=== PATIENT | female | born 1970 | race Caucasian/White ===

== ENCOUNTER 2016-08-25 13:18 | Emergency (ER) | payer MEDICAID ==
[2015-03-30 09:02] VITALS: BMI 45.5
[~2016-08-25 13:18] MED LIST: ASPIRIN81 MG PO; ELAVIL25 MG PO; HEMOCYTE PLUS C1 CAP PO; HYDROCODONE-APA1 TAB PO; ISOSORBIDE MONO30 M1 PO; K-DUR20 MEQ PO; PROAIR HFA8.5 GM INH; RANEXA500 MG PO; SYNTHROID150 MCG PO; TOPROL XL100 MG PO; ZESTORETIC 20/21 TAB PO
== END 2016-08-25 17:59 | disposition home or self-care (01) ==
LOC: D.ER 13:18
DX: H66.90 Otitis media, unspecified, unspecified ear (principal); J02.9 Acute pharyngitis, unspecified; J45.909 Unspecified asthma, uncomplicated; M54.5 Low back pain; I25.10 Atherosclerotic heart disease of native coronary artery without angina pectoris; K21.9 Gastro-esophageal reflux disease without esophagitis; I10 Essential (primary) hypertension; E05.90 Thyrotoxicosis, unspecified without thyrotoxic crisis or storm

== ENCOUNTER 2016-10-19 17:22 | Emergency (ER) | payer MEDICAID ==
[2015-03-30 09:02] VITALS: BMI 45.5
== END 2016-10-19 21:27 | disposition home or self-care (01) ==
LOC: D.ER 17:22
DX: J06.9 Acute upper respiratory infection, unspecified (principal); J45.909 Unspecified asthma, uncomplicated; I25.10 Atherosclerotic heart disease of native coronary artery without angina pectoris; K21.9 Gastro-esophageal reflux disease without esophagitis; I10 Essential (primary) hypertension; E05.90 Thyrotoxicosis, unspecified without thyrotoxic crisis or storm

== ENCOUNTER 2016-10-22 18:04 | Emergency (ER) | payer MEDICAID ==
[2015-03-30 09:02] VITALS: BMI 45.5
[2016-10-22 18:35] LABS: BASOPHILS 0.3 % (0.0-2.0); EOSINOPHILS 2.3 % (0-7); HEMATOCRIT 39.9 % (36.0-48.0); HEMOGLOBIN 13.5 g/dL (12-16); IMMATURE GRANULOCYTES 0.5 % (0-5); LYMPHOCYTES 36.1 % (15-50); MCHC 33.8 g/dL (31.0-37.0); MCV 85.6 fL (80.0-100.0); MEAN PLATELET VOLUME 9.6 fL (7.4-10.4); MONOCYTES 5.7 % (2-11); NEUTROPHILS 55.1 % (40-80); PLATELET COUNT 354 10x3/uL (130-400); RBC 4.66 10x6/uL (4.00-5.40); RDW 13.3 % (11.5-14.5); WBC 12.7 10x3/uL (4.8-10.8)
== END 2016-10-22 20:50 | disposition left against medical advice (07) ==
LOC: D.ER 18:04
PROVIDERS: Emergency Medicine
DX: R10.84 Generalized abdominal pain (principal)

== ENCOUNTER 2017-03-24 16:01 | Observation (INO) | payer MEDICAID ==
[~2017-03-24] VITALS: Ht 157.5 cm; Wt 100.0 kg
--- NOTE | ~2017-03-24 | CN ---
PATIENT NAME:DOUGLAS DENNIS MEDICAL RECORD: [id number] : 70 LOCATION:D. D.2131 ADMIT DATE: 03/24/17 ACCOUNT: [id number] CONSULTING PHYSICIAN: TITA CANNON MD REFERRING PHYSICIAN: RICHA TOURE MD DATE OF CONSULTATION: 03/25/2017 DIAGNOSES: 1. Unstable angina. 2. Coronary artery disease. 3. Status post coronary artery bypass graft surgery. 4. Hypertension. HISTORY OF PRESENT ILLNESS: Mrs. Dennis presents with unstable anginal symptomatology, it has been going on for the past 3 days. It is just like that of her previous angina prior to her bypass surgery. Her bypass surgery was in 2014 with HURT to the LAD and vein graft to the LAD diagonal. Her troponin is normal. She continues to have the chest pain this morning. EKG is with nonspecific ST-T abnormalities. PHYSICAL EXAMINATION: GENERAL APPEARANCE: Well-nourished, well-developed, appears stated age. Level of distress, comfortable. PSYCHIATRIC: Mental status, alert, normal affect. Orientation, oriented to time, place and person. EYES: Lids and conjunctiva, noninjected. No discharge, no pallor. ENT: Lips, teeth, gums, normal dentition. Oropharynx, no cyanosis, no pallor. NECK: Carotid arteries, bilateral normal upstroke, no bruits, no thrills. JUGULAR VEINS: No jugular venous pressure or distention. CERVICAL LYMPH NODES: Nontender, nonenlarged. THYROID: Not enlarged. Nontender. No nodules. LUNGS: Respiratory effort, unlabored. CHEST: Normal curvature. No thoracic deformity. No chest wall tenderness. Percussion, resonant. Auscultation, clear. No wheezes, no rales, no rhonchi. CARDIOVASCULAR: Precordial exam, nondisplaced. No heaves or pericardial thrills. Rate and rhythm, regular. Heart sounds, normal S1, normal S2. No S3, no gallop, no rub. Systolic murmur, not heard. Diastolic murmur, not heard. EXTREMITIES: No cyanosis, no edema. Peripheral pulses, full and equal in all extremities, except as noted. No bruits appreciated. ABDOMEN: Soft, nondistended. Normal aorta. No bruit. Nontender. No masses. Liver, nontender, no hepatomegaly. Spleen, nontender, no splenomegaly. MUSCULOSKELETAL: No joint tenderness. No joint swelling. No erythema. NEUROLOGICAL: Normal gait, normal strength, normal tone. SKIN: Warm and dry. OVERALL IMPRESSION: Chest pain compatible with angina, unstable fashion with a past history of coronary artery bypass graft surgery. Most likely, she has recurrent hemodynamically significant coronary artery disease and/or graft failure. We will proceed with coronary angiography. Further care depends upon findings of the angiography. TRANSINT:[id number] Voice Confirmation ID: [id number] DOCUMENT ID: [id number] CONSULT REPORT [id number] DOUGLAS DENNIS JEFFREY MD CC: [id number] DICTATION DATE: 03/25/1745 TRAY DELIVERY AIDE: 03/25/17 1007 ADM IN [facility] [address] [id number]
--- NOTE | ~2017-03-24 | OP ---
PATIENT NAME: DOUGLAS DENNIS MEDICAL RECORD: [id number] :70 LOCATION:D.M2 D.2131 ADMISSION DATE:03/24/17 SURGEON: TITA CANNON MD DATE OF OPERATION: 03/25/2017 PROCEDURES: 1. Left heart catheterization. 2. Selective coronary angiography. 3. Left ventriculogram. 4. Vein graft angiography. 5. HURT angiography. INDICATION: Angina and coronary artery disease. PROCEDURE IN DETAIL: After informed consent was obtained and after a detailed explanation of risks, benefits as well as alternative therapies, the patient elected to proceed with angiogram and heart catheterization. The right femoral area was prepped and draped in normal sterile fashion. The right femoral artery was cannulated via modified Seldinger technique with placement of 5-Japanese sheath. All catheters exchanged through this sheath. FINDINGS: The left ventriculogram was performed in standard 30-degree MCCRAY view, reveals good cardiac wall motion throughout all segments. Overall ejection fraction estimated 60%. SELECTIVE CORONARY ANGIOGRAPHY: 1. Left main showed no significant angiographic disease. 2. Left anterior descending has a 90% stenosis in the mid vessel, affecting the LAD and diagonal. 3. Vein graft to the LAD diagonal is widely patent. Distal diagonal is widely patent. 4. HURT to the LAD is widely patent. Distal LAD is widely patent. 5. Left circumflex has mild irregularities, but no flow-limiting stenosis. 6. Right coronary has moderate irregularities, but no flow-limiting stenosis. OVERALL IMPRESSION: Wide patency of the vein graft to the diagonal and wide patency of the HURT to the LAD. Chest pain is noncardiac in etiology. TRANSINT:[id number] Voice Confirmation ID: [id number] DOCUMENT ID: [id number] TITA CANNON MD CC: [id number] DICTATION DATE: 03/25/17 1254 ENGINE REPAIRER: 03/25/17 1448 ADM IN [facility] [address] [place] [address]
--- NOTE | ~2017-03-24 | HEMODYNAMI ---
PATIENT:DOUGLAS DENNIS MEDICAL RECORD: [id number] : 70 [facility] [id number] ADMISSION DATE: 03/24/17 Generatedon:03/25/201712:55 Patient name: DOUGLAS DENNIS Patient #: [id number] SSN: : 1970 Date of study: 03/25/2017 Page: Of Hemodynamic Procedure Report Patient Data Patient Demographics Procedure consent was obtained First Name: DOUGLAS Gender: Female Last Name: JEANNIE : 1970 [facility] Initial: R Age: 46 year(s) Patient #: [id number] Race: Additional ID: [id number] Contact details [address]: [address] [place] [address] State: [place] City: [place] Zip code: [address] Past Medical History Allergies Allergen Reaction Date Comments Reported Other allergy 03/25/2017 topiramate, toradol Sulfa drugs 03/25/2017 Admission Admission Data Admission Date: 03/24/2017 Admission Time: 19:46 Room #: 2131 Lab Results Lab Result Date: 03/25/2017 Lab Result Time: 0:00 Biochemistry Name Units Result Min Max Creatinine mg/dl 0.7 --(*---)-- 0.6 1.3 CBC Name Units Result Min Max Hemoglobin g/dl 12.9 -*(----)-- 13.5 17.5 Procedure Procedure Types Cath Procedure Diagnostic Procedure LHC C w/Coronaries w/Grafts Miscellaneous Procedures Moderate Sedation up to 15 minutes Procedure Description Procedure Date Procedure Date: 03/25/2017 Procedure Start Time: 12:43 Procedure End Time: 12:54 Procedure Staff Name Function Justyn Das MD Performing Physician Otto Orourke RT Scrub Edwige Vides RT Scrub Kevon Stark RN Nurse Selvin Harris RN Pharmaceutical Operator Umm Ambrose RT Monitor Procedure Data Cath Procedure Fluoroscopy Diagnostic fluoroscopy Total fluoroscopy Time: 1.7 time: 1.7 min min Diagnostic fluoroscopy Total fluoroscopy dose: 530 dose: 530 mGy mGy Contrast Material Contrast Material Type Amount (ml) Isovue 300 71 Entry Location Entry Primary Successful Side Size Upsize Upsize Entry Closure Succes sful Closure Location (Fr) 1 (Fr) 2 (Fr) Remarks Device Remarks Femoral Right 5 Fr Exoseal artery Estimated blood loss: 5 ml Diagnostic catheters Device Type Used For End Catheter Placement Cordis 5Fr Pigtail LV Angiography Catheter (MP) Cordis 5Fr JL 4.0 Left Coronary Catheter (MP) Angiography Cordis 5Fr 3DRC Catheter Internal mammary (MP) arteriography Cordis 5Fr 3DRC Catheter Right Coronary (MP) Angiography Cordis 5Fr 3DRC Catheter SVG Angiography (MP) Procedure Complications No complications Procedure Medications Medication Administration Route Dosage Oxygen NC 2 l/min 0.9% NaCl I.V. 100 ml/hr Heparin Flush Bag added to field 2 bags (1000units/500ml NS) Versed I.V. 2 mg Fentanyl I.V. 100 mcg Hemodynamics Rest HGB: 12.9 (g/dl) Heart Rate: 65 (bpm) Snapshots Pre Cath Intra NCS Post Cath Vital Signs Time Heart Resp SPO2 etCO2 [id number] NIBP (mmHg) Rhythm Pain Sedation Rate (ipm) (%) (mmHg) (mmHg) Status Level (bpm) 12:31:56 68 19 98 0 0 159/85(120) NSR 0 (11) 10(A) , No pain 12:38:09 65 18 100 0 0 155/88(120) NSR 0 (11) 10(A) , No pain 12:42:33 65 16 99 0 0 146/80(109) NSR 0 (11) 10(A) , No pain 12:46:58 66 14 98 0 0 154/80(118) NSR 0 (11) 10(A) , No pain 12:51:20 71 16 98 0 0 150/80(111) NSR 0 (11) 10(A) , No pain Medications Time Medication Route Dose Verified Delivered Reason Notes Effec tiveness by by 12:30:09 Oxygen NC 2 Kevon Kevon Per l/min Lincoln Stark physician RN RN 12:30:35 0.9% NaCl I.V. 100 Kevon Kevon Per ml/hr Lincoln Stark physician RN RN 12:37:41 Heparin Flush added 2 Kevon Kevon used for Bag to bags Lincoln Stark procedure (1000units/500ml field RN RN NS) 12:41:28 Versed I.V. 2 mg Kevon Kevon for Lorigan Lincoln sedation RN RN 12:42:56 Fentanyl I.V. 100 Kevon Kevon for mcg Lorevonne Lorevonne sedation RN steam gigger Log Time Note 12::29 Time tracking: Regular hours 12:09:31 Selvin Harris RN sent for patient. Start room use. 12:09:47 Plan of Care:Hemodynamics will remain stable., Cardiac rhythm will remain stable., Comfort level will be maintained., Respiratory function will remain adequate., Patient/ family verbilizes understanding of procedure., Procedure tolerated without complication., Recovers from procedure without complications.. 12:19:25 Patient received from PCU to CCL 1 Alert and oriented. Tansferred to table in Supine position. 12:19:26 Warm blankets applied, and kae hugger turned on for patient comfort. 12:19:27 Correct patient and procedure confirmed by team. 12:19:28 Signed procedure consent form obtained from patient. 12:19:29 ECG and BP/O2 sat monitors applied to patient. 12:19:30 Full Disclosure recording started 12:21:50 H&P Date Dictated: 03/25/2017 Within 30 days and on chart.. 12:22:49 ACC The patient was administered the following blood thiners within the last 24 hours: ACCPlavix 12:22:51 Patient diabetic? Yes. 12:22:52 If diabetic: On Metformin? No 12:24:56 IV left forearm D/C'd due to infiltration. 12:25:32 IV started by Selvin Harris RN inleft hand with a 20 gauge IV catheter with 0.9% NaCl at KVO. 12:30:09 Oxygen 2 l/min NC was administered by Kevon Stark RN; Per physician; 12:30:35 0.9% NaCl 100 ml/hr I.V. was administered by Kevon Stark RN; Per physician; 12:36:19 20g IV Catheter opened to sterile field. 12:36:55 Vital chart was started 12:37:03 Rhythm: sinus rhythm 12:37:07 Pre-procedure instructions explained to patient. 12:37:07 Pre-op teaching completed and patient verbalized understanding. 12:37:08 Family in waiting room. 12:37:11 Patient NPO since Midnight. 12:37:37 Patient allergic to Other allergytopiramate, toradol 12:37:41 Heparin Flush Bag (1000units/500ml NS) 2 bags added to field was administered by Kevon Stark RN; used for procedure; 12:37:45 Patient allergic to Sulfa drugs 12:38:07 Baseline sample Acquired. 12:38:10 Is the patient allergic to Iodine/contrast media? No. 12:38:11 Is patient on blood thinner?Yes 12:38:15 ACC The patient was administered the following blood thiners within the last 24 hours: ACCPlavix 12:38:32 Previous problem with sedation/anesthesia? No ? 12:38:34 Snore? Yes 12:38:35 Sleep apnea? No 12:38:36 Deviated septum? No 12:38:36 Opens mouth fully? Yes 12:38:37 Sticks out tongue? Yes 12:38:46 Airway obstruction? Yes Asthma 12:38:49 Dentures? No ? 12:38:52 Pre procedure: right dorsailis pedis pulse 1+ Palpable, but thready & weak; easily obliterated 12:38:55 Patient pain scale 0/10 ?. 12:39:22 Lab Result : Creatinine 0.7 mg/dl 12:39:22 Lab Result : Hemoglobin 12.9 g/dl 12:39:27 Lab results completed and on chart. 12:39:31 Right groin area was prepped with chlora-prep and draped in sterile fashion 12:39:32 Alarms reviewed by R. N. 12:39:32 Sharps counted by scrub and verified by R.N. 12:39:36 Final Timeout: patient, procedure, and site verified with staff and physician. All members of the team are in agreement. 12:39:38 Right groin site verified by team. 12:39:41 Physical assessment completed. ASA score P 2 - A patient with mild systemic disease as per Justyn Das MD. 12:39:44 Sedation plan: IV Moderate Sedation Versed, Fentanyl 12:40:36 Zero performed for pressure channel P1 12:41:28 Versed 2 mg I.V. was administered by Kevon Stark RN; for sedation; 12:42:56 Fentanyl 100 mcg I.V. was administered by Kevon Stark RN; for sedation; 12:43:12 Procedure started. 12:43:16 Local anesthetic to right femoral artery with Lidocaine 2% by Justyn Das MD.INITIAL ACCESS ONLY 12:43:30 A 5 Fr sheath was inserted into the Right Femoral artery 12:44:25 Use device set Femoral Dx 12:44:26 Acist Syringe opened to sterile field. 12:44:26 Bag Decanter opened to sterile field. 12:44:27 Medline Cath Pack opened to sterile field. 12:44:27 Terumo 5Fr [place] Sheath opened to sterile field. 12:44:28 St Glen 260cm J .035 wire opened to sterile field. 12:44:29 Acist Hand Control opened to sterile field. 12:44:29 Acist Manifold opened to sterile field. 12:44:30 Diagnostic Infinity 5Fr Multipack catheter opened to sterile field. 12:44:30 Tegaderm 4 x 4 opened to sterile field. 12:44:47 A Cordis 5Fr Pigtail Catheter (MP) was advanced over the wire and used for LV Angiography. 12:45:05 LV gram done using MCCRAY 12:45:09 Injector settings: Ml/sec: 5, Volume: 15, 12:45:16 EF : 60 % 12:45:22 Catheter removed. 12:45:32 A Cordis 5Fr JL 4.0 Catheter (MP) was advanced over the wire and used for Left Coronary Angiography. 12:46:58 Catheter removed. 12:47:29 A Cordis 5Fr 3DRC Catheter (MP) was advanced over the wire and used for Internal mammary arteriography. To LAD 12:48:21 A Cordis 5Fr 3DRC Catheter (MP) was advanced over the wire and used for Right Coronary Angiography. 12:49:06 A Cordis 5Fr 3DRC Catheter (MP) was advanced over the wire and used for SVG Angiography. TO Diag 12:49:11 Catheter removed. 12:49:50 Sheath removed intact; hemostasis achieved with Exoseal to the Right Femoral artery. 12:49:51 Procedure ended.(Physican Out) 12:51:24 Fluoroscopy time 01.70 minutes. 12:51:27 Fluoroscopy dose: 530 mGy 12:51:27 Flurop Dose total: 530 12:51:31 Contrast amount:Isovue 300 71ml. 12:51:32 Sharps counted by scrub and verified by R.N. 12:51:34 Insertion/operative site no bleeding no hematoma. 12:51:37 Post-op/insertion site Right Femoral artery dressed using a 4 x 4 and Tegaderm. 12:51:41 Post right femoral artery:stable, clean and dry 12:51:43 Post Procedure Pulses reassessed and unchanged 12:51:46 Post-procedure physical assessment completed. ASA score P 2 - A patient with mild systemic disease as per Justyn Das MD. 12:51:48 Post procedure rhythm: unchanged. 12:51:50 Estimated blood loss: 5 ml 12:51:51 Post procedure instruction explained to patient.Patient verbalizes understanding. 12:51:52 Patient needs reinforcement of post procedure teaching. 12:52:14 Procedure type changed to Cath procedure, Diagnostic procedure, LHC, LHC w/Coronaries w/Grafts, Miscellaneous Procedures, Moderate Sedation up to 15 minutes 12:52:18 Procedure Complication : No complications 12:52:20 See physician's report for complete and final results. 12:52:33 Cordis 5Fr Exoseal opened to sterile field. 12:53:02 Procedure and supply charges have been captured, reviewed, submitted and are correct. 12:54:42 Vital chart was stopped 12:54:44 Report given to PCU. 12:54:47 Patient transfered to PCU with Bed. 12:54:56 Procedure ended. 12:54:56 Full Disclosure recording stopped 12:54:59 End room use (Document Last) Device Usage Item Name Manufacture Quantity Catalog Hospital Part Current Minimal L ot# / Number Charge Number Stock Stock Serial# Code 20g IV B. Chapa 1 [id number] [id number] 777449 5 Catheter Acist Acist 1 49368 176086 802449 361393 20 Syringe [employer] Inc Bag Microtek 1 2002S 542507 62019 673534 5 Decanter Medical Inc. Medline Cardinal 1 [id number] 692138 73423 993862 5 Cath Vopium Terumo 5Fr Terumo 1 PAG907 305277 446634 038492 [address] [place] [facility] [place] 1 595920 596173 081890 408798 30 260cm J .035 wire Acist Hand Acist 1 90103 875215 645143 093448 5 Control [employer] Inc Acist Acist 1 16565 510083 547321 340818 5 Manifold Medical Systems Inc Diagnostic Cardinal 1 [id number] 556278 17511 833655 30 Infinity Health 5Fr Multipack catheter Tegaderm 4 3M 1 1626W 644303 205429 812375 5 x 4 Cordis 5Fr Cardinal 1 182230 5 Pigtail Health Catheter (MP) Cordis 5Fr Cardinal 1 450319 5 JL 4.0 Health Catheter (MP) Cordis 5Fr Cardinal 1 124290 5 3DRC Health Catheter (MP) Cordis 5Fr Cardinal 1 EX500 919208 418288 988587 10 Terra Tech Signature Audit [place] Stage Time Signature Unsigned Intra-Procedure 03/25/2017 Umm 12:55:10 PM Counts RT(R) Signatures Monitor : Umm Signature : Counts RT Date : Time : [address] [address]
[2017-03-24 17:26] LABS: BASOPHILS 0.4 % (0-2); EOSINOPHILS 1.6 % (0-7); HEMATOCRIT 39.2 % (36.0-48.0); HEMOGLOBIN 12.9 g/dL (12-16); IMMATURE GRANULOCYTES 0.3 % (0-5); LYMPHOCYTES 40.6 % (15-50); MCH 28.3 pg (26.0-34.0); MCHC 32.9 g/dL (31.0-37.0); MEAN PLATELET VOLUME 9.9 fL (7.4-10.4); MONOCYTES 7.2 % (2-11); NEUTROPHILS 49.9 % (40-80); PLATELET COUNT 324 10x3/uL (130-400); RBC 4.56 10x6/uL (4.00-5.40); RDW 14.1 % (11.5-14.5); WBC 9.4 10x3/uL (4.8-10.8)
[2017-03-24 17:46] LABS: ALBUMIN 3.7 g/dL (3.4-5.0); ALKALINE PHOSPHATASE 78 U/L (46-116); ALT (SGPT) 44 U/L (10-68); BILIRUBIN - TOTAL 0.21 mg/dL (0.2-1.3); CALC OSMOLALITY 280 mosm/kg (275-300); CALCIUM 8.8 mg/dL (8.5-10.1); CARBON DIOXIDE 27.2 mmol/L (21.0-32.0); CHLORIDE - SERUM 102 mmol/L (98-107); CREATININE - SERUM 0.7 mg/dL (0.6-1.3); GLUCOSE 169 mg/dL (74-106); POTASSIUM - SERUM 3.4 mmol/L (3.5-5.1); PROTEIN - SERUM 7.2 g/dL (6.4-8.2); SODIUM 139 mmol/L (136-145); UREA NITROGEN 9 mg/dL (7-18); eGFR NON AFRICAN AMERICAN > 90 mL/min (90-120)
[2017-03-24 17:58] LABS: CHOL - HDL RATIO 3.6 ratio (2.3-4.1); CHOLESTEROL, TOTAL 163 mg/dL (0-200); CKMB 1.7 U/L (0.0-3.6); CREATINE KINASE 104 UL (21-215); HDL CHOLESTEROL 45 mg/dL (32-96); LDL CHOLESTEROL 80 mg/dL (0-100); LDL-HDL RATIO 1.8 ratio (1.5-3.5); TRIGLYCERIDE 194 mg/dL (30-200)
[2017-03-24 18:03] LABS: TROPONIN-I < 0.017 ng/mL (0.000-0.060)
[2017-03-24 21:13] LABS: CKMB 1.6 U/L (0.0-3.6); CREATINE KINASE 146 UL (21-215)
[2017-03-24 21:22] LABS: TROPONIN-I < 0.017 ng/mL (0.000-0.060)
--- NOTE | 2017-03-24 22:23 | NUR ---
RECIEVED TO ROOM 2130 FROM ER VIA . A&O. VITALS STABLE, PLACED ON TELEMETRY, 78 SR. IV TO LEFT AC SL, SITE CLEAN AND DRY. SANDWHICH TRAY GIVEN AT PT REQUEST. PT DENIES PAIN OR NEEDS, BED LOW, CL IN REACH.
[2017-03-25 01:38] LABS: CKMB 1.2 U/L (0.0-3.6); CREATINE KINASE 98 UL (21-215)
[2017-03-25 01:41] LABS: TROPONIN-I < 0.017 ng/mL (0.000-0.060)
[2017-03-25 02:39] VITALS: BP 143/71; Ht 157.5 cm; Wt 100.0 kg
--- NOTE | 2017-03-25 03:29 | NUR ---
RESTING WITH EYES CLOSED, RESPERATIONS EVEN, NO S/S DISTRESS NOTED.
--- NOTE | 2017-03-25 03:48 | NUR ---
RESTING IN BED WITH NO DISTRESS. CALL LIGHT IN REACH. CPOC.
[2017-03-25 04:00] VITALS: BP 132/81
--- NOTE | 2017-03-25 07:15 | NUR ---
RESTING QUIETLY RESP UNLABORED NAD NOTED
--- NOTE | 2017-03-25 07:20 | NUR ---
ASSESSMENT COMPLETED. TELEMERTY SHOWED SR. SL TO LAC. DENIES ANY NEEDS. SR UP WITH CALL LIGHT IN REACH. NPO FOR CATH
[2017-03-25 08:12] LABS: CREATINE KINASE 82 UL (21-215)
[2017-03-25 08:14] LABS: TROPONIN-I < 0.017 ng/mL (0.000-0.060)
[2017-03-25 08:18] VITALS: BP 111/52
[2017-03-25 12:23] VITALS: BP 115/49
--- NOTE | 2017-03-25 13:10 | NUR ---
RECEIVED PT BACK FROM [facility] VIA BED IN STABLE CONDITION RT GROIN DRSG C/D/I NO SIGNS OF BLEEDING PPPX4 TELEMETRY SR RATE 71 VSS NAD NOTED
[2017-03-25 17:06] VITALS: BP 137/58
--- NOTE | 2017-03-25 18:35 | NUR ---
PT HAD A CA.TH WHICH WAS NORMAL. RIGHT GROIN SOFT WITH DRSG DRY AND INTACT. V/S STABLE
--- NOTE | 2017-03-25 18:37 | NUR ---
TO PRIVATE CAR PER WC. INSTRUCTIONS GIVEN
== END 2017-03-25 18:38 | disposition home or self-care (01) ==
LOC: D.ER 16:01 → D.M2 19:46 → OBSVTIME 19:46 → D.M2 19:46
PROVIDERS: Family Medicine; ADMIT Family Medicine
DX: R07.89 Other chest pain (principal); I25.10 Atherosclerotic heart disease of native coronary artery without angina pectoris; Z95.1 Presence of aortocoronary bypass graft; I10 Essential (primary) hypertension; E03.9 Hypothyroidism, unspecified; J44.9 Chronic obstructive pulmonary disease, unspecified; I25.2 Old myocardial infarction; Z87.891 Personal history of nicotine dependence; K21.9 Gastro-esophageal reflux disease without esophagitis

== ENCOUNTER → 2017-06-11 10:34 | Outpatient (CLI) | payer MEDICAID ==
[2017-03-25 02:39] VITALS: BMI 40.3
[~2017-06-11 10:34] MED LIST changes: +HYDROCODON-ACE1 EAC7 PO; +HYZAAR 50-12.51 TAB PO; +PROPRANOLOL HCL20 MG PO; +PROVENTIL HFA6.7 GM INH; +ZANTAC300 MG PO
--- NOTE | 2017-06-20 14:14 | ST ---
PATIENT:DOUGLAS DENNIS MEDICAL RECORD: [id number] SEX: F LOCATION:[facility] ORDER #: ADMISSION DATE: 06/11/17 AGE OF PATIENT: 46 REFERRING PHYSICIAN: INTERPRETING PHYSICIAN: TITA CANNON MD DATE OF SERVICE: 06/11/2017 Nuclear Stress Test INDICATION: Chest pain of unknown etiology. She was exercised on standard Lexiscan protocol with 31.6 mCi of sestamibi injected at peak stress, 12.9 mCi were used previously for rest images. FINDINGS: Gated SPECT reveals preserved ejection fraction greater than 60% with good wall motion and thickening and brightening throughout all segments. SPECT imaging, Cardiolite was used as myocardial perfusion agent. There is homogeneous uptake throughout all segments at rest and stress with no evidence of inducible ischemia or previous infarction. OVERALL IMPRESSION: 1. This is a normal nuclear stress test with no evidence of inducible ischemia or previous infarction. 2. Gated SPECT reveals preserved ejection fraction greater than 60%. In this patient with ongoing symptomatology if the current scan does not suggest the presence of hemodynamically significant coronary artery disease, we would proceed with noncardiac etiology of chest pain workup. TRANSINT:[id number] Voice Confirmation ID: [id number] DOCUMENT ID: [id number] TITA CANNON MD at 1414 CC: [id number] DICTATION DATE: 06/12/17 1238 CMV DRIVER: 06/12/17 1327 DEP CLI 06/11/17 [id number] [place] [address]
== END | disposition home or self-care (01) ==
LOC: D.NM 10:34
DX: R06.00 Dyspnea, unspecified (principal); I25.10 Atherosclerotic heart disease of native coronary artery without angina pectoris

== ENCOUNTER 2017-09-10 06:20 | Inpatient (IN) | payer MEDICAID ==
[2017-09-09 10:58] LABS: HEMOGLOBIN 13.5 g/dL (12-16); MCH 29.9 pg (26.0-34.0); MCHC 33.8 g/dL (31.0-37.0); MCV 88.5 fL (80.0-100.0); RBC 4.52 10x6/uL (4.00-5.40); RDW 12.9 % (11.5-14.5); WBC 8.9 10x3/uL (4.8-10.8)
[~2017-09-10] VITALS: Ht 165.1 cm; Wt 111.4 kg
--- NOTE | ~2017-09-10 | OP ---
PATIENT NAME: DOUGLAS DENNIS MEDICAL RECORD: [id number] :70 LOCATION:D.OPS ADMISSION DATE: SURGEON: JOANN PANDEY MD DATE OF OPERATION: 09/10/2017 SURGEON: Joann Pandey MD PREOPERATIVE DIAGNOSES: 1. Recurrent incarcerated incisional hernia. 2. Essential hypertension. 3. Cardiac arrhythmia. 4. Chronic obstructive pulmonary disease. POSTOPERATIVE DIAGNOSES: 1. Recurrent incarcerated incisional hernia. 2. Essential hypertension. 3. Cardiac arrhythmia. 4. Chronic obstructive pulmonary disease. PROCEDURE PERFORMED: 1. Extensive laparoscopic lysis of adhesion complicated by morbid obesity. Lysis of adhesions was performed for greater than 50% of the operation. Total operative time was slightly over 2 hours, normal operative time for this procedure is less than 1 hour. 2. Laparoscopic incarcerated recurrent incisional hernia repair with Ventralight ST mesh. ANESTHESIA: General. COMPLICATIONS: None. SPECIMENS: None. Case was clean. ESTIMATED BLOOD LOSS: 30 cc. OPERATIVE COURSE: After consent was obtained, the patient was taken to the operating room and placed in the supine position on the operating table. General anesthesia was given. A timeout was taken to confirm the correct patient and procedure. The abdomen was prepped and draped in typical sterile fashion. Ioban dressings were placed across the abdominal wall and local anesthetic was injected in the left upper quadrant at Thompson's point. A stab incision was made with an 11-blade scalpel. Using a 5-mm bladeless optical trocar, the abdomen was entered under direct laparoscopic vision. Adequate pneumoperitoneum was achieved as the patient had a previous midline incisional hernia repair. She is morbidly obese. As the CT findings showed she had multiple loops of incarcerated bowel and omentum throughout multiple incisional hernia defects, reduction of the incarcerated hernia and laparoscopic lysis of adhesions was performed using a combination of Harmonic scalpel dissection, Metzenbaum scissor dissection. This took approximately an hour and 15 minutes. The hernia sac was excised. The transverse colon and small bowel loops were dissected out of the abdominal wall hernia and sac and returned to the abdominal space. All adhesions were taken off the anterior abdominal wall, a large 22 cm defect was identified. The defect was closed with #1 Prolene sutures, which OPERATIVE REPORT [id number] DOUGLAS DENINS were passed transfascially with a Johnathan-Branden suture passer under direct laparoscopic vision. All instruments were removed. The abdomen was desufflated. The sutures were tied, reapproximating the entire length of the incisional hernia. The abdomen was reinsufflated. The abdominal cavity was inspected. It was copiously irrigated and suctioned. There were no signs of bowel injury. No signs of bleeding. Next, a 6-inch x 10-inch Ventralight ST mesh with Echo positioning system was placed into the abdomen. At the beginning of the case, after the first trocar was placed, all additional trocars were placed, a 12-mm trocar in the left lateral quadrant, 5-mm trocar in the left lower quadrant 5-mm trocar into the right lateral quadrant. The mesh was placed into the abdominal cavity. The Echo positioning system was inflated. The mesh was held against the anterior abdominal wall. The mesh was then tacked in place using the OptiFix tacking device in a double crowned fashion. The Echo positioning system was removed. There was adequate 5 cm overlap in all directions on the incisional hernia defect. At this time, again, the abdomen was copiously irrigated and suctioned. The omentum and bowel were inspected. There was no evidence of bowel injury. No evidence of bleeding. At this time, all remaining instruments were removed. The abdomen was desufflated. Trocars were removed. Skin was closed with 4-0 Monocryl, Mastisol and Steri-Strips. At the end of the case, all needle and instrument counts were correct. No complications occurred. The patient was extubated and transferred to the PACU in stable condition. TRANSINT:[id number] Voice Confirmation ID: [id number] DOCUMENT ID: [id number] JOANN PANDEY MD at 1448 CC: [id number] DICTATION DATE: 09/10/17 1252 LAB ENGINEER: 09/10/17 1336 [facility] [address] [place] [address]
[~2017-09-10 06:20] MED LIST changes: -HYDROCODON-ACE1 EAC7 PO; -PROPRANOLOL HCL20 MG PO; -PROVENTIL HFA6.7 GM INH; -ZANTAC300 MG PO
[2017-09-10] MEDS ORDERED: ZANTAC300 MG PO (08:31)
[2017-09-10] MEDS ORDERED: PROPRANOLOL HCL20 MG PO (08:31)
[2017-09-10 08:43] VITALS: BMI 43.0
[2017-09-10] MEDS ORDERED: PROVENTIL HFA6.7 GM INH (08:47)
[2017-09-10 08:48] LABS: HCG URINE NEGATIVE (NEGATIVE)
[2017-09-10 10:31] LABS: CALC OSMOLALITY 278 mosm/kg (275-300); CALCIUM 9.7 mg/dL (8.5-10.1); CARBON DIOXIDE 27.6 mmol/L (21.0-32.0); CHLORIDE - SERUM 101 mmol/L (98-107); CREATININE - SERUM 0.6 mg/dL (0.6-1.3); GLUCOSE 149 mg/dL (74-106); POTASSIUM - SERUM 3.9 mmol/L (3.5-5.1); SODIUM 139 mmol/L (136-145); UREA NITROGEN 8 mg/dL (7-18); eGFR NON AFRICAN AMERICAN > 90 mL/min (90-120)
[2017-09-10] MEDS ORDERED: HYDROCODON-ACE1 EAC7 PO (12:44)
[2017-09-10 23:49] VITALS: BP 115/51
[2017-09-11 04:49] VITALS: BP 113/48; Ht 165.1 cm; Wt 111.4 kg
[2017-09-11 09:27] VITALS: BP 104/52
[2017-09-11 11:34] VITALS: BP 129/64
[2017-09-11 12:26] VITALS: BP 129/64
== END 2017-09-11 13:34 | disposition home or self-care (01) | DRG 940 ==
LOC: D.OPS 06:20 → D.MS 06:20 → D.OPS 09:45 → D.PAN 10:00 → D.MS 21:13 → D.SDCHOLD 09-11 13:04 → D.OPS 09-11 13:05 → D.MS 09-11 13:05
PROVIDERS: Anesthesiology; Surgery
PROC: 0DNW4ZZ Release Peritoneum, Percutaneous Endoscopic Approach (ICD-10-PCS; 2017-09-10)
PROC: 0WUF4JZ Supplement Abdominal Wall with Synthetic Substitute, Percutaneous Endoscopic Approach (ICD-10-PCS; principal; 2017-09-10 09:45)
DX: G89.18 Other acute postprocedural pain (principal); K43.0 Incisional hernia with obstruction, without gangrene; Z68.41 Body mass index [BMI] 40.0-44.9, adult; I10 Essential (primary) hypertension; J44.9 Chronic obstructive pulmonary disease, unspecified; I49.9 Cardiac arrhythmia, unspecified; E66.01 Morbid (severe) obesity due to excess calories; E03.9 Hypothyroidism, unspecified

== ENCOUNTER 2017-11-05 13:34 | Observation (INO) | payer MEDICAID ==
[~2017-11-05] VITALS: Ht 165.1 cm; Wt 112.7 kg
--- NOTE | ~2017-11-05 | CN ---
PATIENT NAME:FRANCES DENNIS MEDICAL RECORD: [id number] : 70 LOCATION:D. D.2116 ADMIT DATE: 11/05/17 ACCOUNT: [id number] CONSULTING PHYSICIAN: IJEOMA RIGGS MD REFERRING PHYSICIAN: CARIN MARIE MD DATE OF CONSULTATION: 11/06/2017 Cardiology Consultation HISTORY OF PRESENT ILLNESS: Frances Dennis is a 47-year-old female with known history of coronary artery disease, status post coronary bypass grafting. Actually, she has been doing fairly well without angina, had stressful situation with family member yesterday. She had sharp stabbing pain, not classic for angina. Enzymes negative at this point in time. ECG without acute changes. Discussed options including Cardiolite stress testing, diagnostic angiography first to defer any further workup at this time. She has been doing well. We are asked to see her concerning her cardiovascular status. PAST MEDICAL HISTORY: Includes: 1. History of hypertension. 2. Coronary artery disease as described above. 3. Cardiac arrhythmias, PVCs. 4. Gastroesophageal reflux disease. 5. Hypothyroidism, on replacement. MEDICATIONS: Include Synthroid 150 mcg p.o. daily, Zantac 300 q.h.s., aspirin 81 every day, Inderal 20 q.h.s. Hyzaar 50/12.5 every day, albuterol 2 puffs q.6 hours p.r.n. ALLERGIES: INCLUDE SULFA, KETOROLAC, PENICILLIN. SOCIAL HISTORY: Nonsmoker, nondrinker. Still works. No set exercise program. REVIEW OF SYSTEMS: The patient reports easy bruising but reports no swollen glands. The patient reports no fever, no night sweats, no significant weight gain, no significant weight loss. No significant exercise tolerance. The patient reports no dry eyes, no irritation, no vision change. Patient reports no difficulty hearing and no ear pain. Patient reports no frequent nose bleeds or nose and sinus problems. Patient reports on arm pain on exertion. No shortness of breath while lying down. No history of heart murmur. Patient reports no cough, no wheezing or coughing up blood. Patient reports no abdominal pain, no vomiting. Normal appetite. No diarrhea and not vomiting blood. No nausea and no constipation. Patient reports no incontinence. No difficulty urinating. No hematuria. No increased frequency. Patient reports no muscle aches. No weakness, no arthralgias, no back pain. No swelling of the extremities. Patient reports no abnormal mole, no jaundice, no rashes. Reports no loss of consciousness. No weakness and no numbness. No seizures, dizziness, or headaches. The patient reports no depression, no sleep disturbance, feeling safe in a relationship and no alcohol abuse. Patient reports on fatigue. Reports no runny nose or sinus pressure. No itching, no hives, and no frequent sneezing. PHYSICAL EXAMINATION: GENERAL: Pleasant female, in no acute distress. VITAL SIGNS: Blood pressure 124/74, pulse 70 and regular. CONSULT REPORT [id number] FRANCES DENNIS HEENT: Normocephalic, atraumatic. NECK: No bruits noted. HEART: Regular. LUNGS: Good air excursion. ABDOMEN: Soft, nontender. EXTREMITIES: Pulses are 2+ with no edema. NEUROLOGIC: Grossly intact. DIAGNOSTIC DATA: ECG without acute change. IMPRESSION: Chest pain, somewhat atypical for usual angina. Cardiac enzymes negative at this time. Okay to discharge from my standpoint with close followup as an outpatient. TRANSINT:[id number] Voice Confirmation ID: [id number] DOCUMENT ID: [id number] IJEOMA RIGGS MD at 1155 CC: [id number] DICTATION DATE: 11/06/17830 SALES [employer]ANNING MANAGER: 11/06/17 09 DIS IN 11/06/17 [facility] [address] [place] [address]
[~2017-11-05 13:34] MED LIST changes: +HYDROCODON-ACE1 EAC7 PO; +PROPRANOLOL HCL20 MG PO; +PROVENTIL HFA6.7 GM INH; +ZANTAC300 MG PO
[2017-11-05 14:59] LABS: BASOPHILS 0.4 % (0-2); EOSINOPHILS 4.5 % (0-7); HEMATOCRIT 37.8 % (36.0-48.0); HEMOGLOBIN 12.4 g/dL (12-16); IMMATURE GRANULOCYTES 0.2 % (0-5); LYMPHOCYTES 35.8 % (15-50); MCH 28.8 pg (26.0-34.0); MCHC 32.8 g/dL (31.0-37.0); MCV 87.7 fL (80.0-100.0); MEAN PLATELET VOLUME 9.9 fL (7.4-10.4); MONOCYTES 6.7 % (2-11); NEUTROPHILS 52.4 % (40-80); PLATELET COUNT 320 10x3/uL (130-400); RBC 4.31 10x6/uL (4.00-5.40); WBC 8.1 10x3/uL (4.8-10.8)
[2017-11-05 15:26] LABS: ALBUMIN 3.5 g/dL (3.4-5.0); ALKALINE PHOSPHATASE 78 U/L (46-116); ALT (SGPT) 41 U/L (10-68); BILIRUBIN - TOTAL 0.24 mg/dL (0.2-1.3); CALC OSMOLALITY 281 mosm/kg (275-300); CALCIUM 9.2 mg/dL (8.5-10.1); CHLORIDE - SERUM 102 mmol/L (98-107); CREATININE - SERUM 0.7 mg/dL (0.6-1.3); GLUCOSE 167 mg/dL (74-106); POTASSIUM - SERUM 3.6 mmol/L (3.5-5.1); PROTEIN - SERUM 7.5 g/dL (6.4-8.2); SODIUM 140 mmol/L (136-145); UREA NITROGEN 10 mg/dL (7-18); eGFR NON AFRICAN AMERICAN > 90 mL/min (90-120)
[2017-11-05 15:38] LABS: CKMB 1.6 U/L (0.0-3.6); CREATINE KINASE 94 UL (21-215)
[2017-11-05 15:43] LABS: TROPONIN-I < 0.017 ng/mL (0.000-0.060)
[2017-11-05 18:55] LABS: CKMB 1.5 U/L (0.0-3.6); CREATINE KINASE 97 UL (21-215); TROPONIN-I < 0.017 ng/mL (0.000-0.060)
[2017-11-05 19:00] VITALS: BP 129/97
[2017-11-05 22:44] VITALS: BP 130/80; BMI 40.0
[2017-11-06] VITALS: BP 135/71
[2017-11-06 00:37] LABS: CKMB 1.3 U/L (0.0-3.6); CREATINE KINASE 96 UL (21-215); TROPONIN-I < 0.017 ng/mL (0.000-0.060)
[2017-11-06 04:00] VITALS: BP 135/79
[2017-11-06 06:51] LABS: CKMB 1.3 U/L (0.0-3.6); CREATINE KINASE 103 UL (21-215); TROPONIN-I < 0.017 ng/mL (0.000-0.060)
[2017-11-06 08:10] VITALS: BP 124/74
[2017-11-06 08:32] VITALS: Ht 165.1 cm; Wt 112.7 kg
== END 2017-11-06 10:49 | disposition home or self-care (01) ==
LOC: D.ER 13:34 → OBSVTIME 17:35 → D.M2 17:35
PROVIDERS: Emergency Medicine
DX: R07.89 Other chest pain (principal); I25.10 Atherosclerotic heart disease of native coronary artery without angina pectoris; Z95.1 Presence of aortocoronary bypass graft; I10 Essential (primary) hypertension; K21.9 Gastro-esophageal reflux disease without esophagitis; E03.9 Hypothyroidism, unspecified; J44.9 Chronic obstructive pulmonary disease, unspecified

== ENCOUNTER → 2019-08-26 13:15 | Outpatient (CLI) | payer MEDICAID ==
[2017-11-06 08:32] VITALS: BMI 40.0
== END | disposition home or self-care (01) ==
LOC: D.HCCECHO 13:15
PROVIDERS: ATTEND Internal Medicine Interventional Cardiology
DX: R01.1 Cardiac murmur, unspecified (principal)